=== PATIENT | female | born 1970 | race Caucasian/White ===

== ENCOUNTER → 2018-10-31 | Outpatient (CLI) | payer OTHER ==
[~2018-10-31] MED LIST: ACYC-113 PO; GADOBUTROL 7.5 MMOL/7.5 ML PFS ONE; HYDR4TAB48 PO; IBUP200C8 PO; METO5TAB57 PO; ONDA4TAB7 PO; OXYC5TAB3 PO
== END | disposition home or self-care (01) ==
LOC: CFH 14:29
PROVIDERS: ATTEND Radiology Radiation Oncology
DX: G50.0 Trigeminal neuralgia (principal); I10 Essential (primary) hypertension
CPT/HCPCS: 70553; A9585